=== PATIENT | male | born 1945 | race Caucasian/White ===

== ENCOUNTER 2018-01-01 01:21 | Inpatient (IN) | payer OTHER ==
[~2018-01-01] VITALS: Ht 182.9 cm; Wt 108.0 kg
[~2018-01-01 01:21] MED LIST: ANORO ELLIPTA1 EACH; ASPIRIN81 M4 PO; ATORVASTATIN CA40 M1 PO; FLOMAX0.4 M1 PO; METFORMIN HCL1000 M1 PO; RAMIPRIL5 M1 PO; TOPROL XL100 M1 PO; ZITHROMAX250 M2 PO
--- NOTE | 2018-01-01 09:27 | RADIOLOGY REPORT ---
Single lateral view of the lumbar spine CLINICAL INFORMATION: L3-L4 image 1. COMPARISON: Lumbar spine radiographs 11/16/[address] 04/21/2017. FINDINGS: Single lateral radiograph obtained in the OR demonstrates surgical instrumentation at the L3-L4 level where there is grade 1 degenerative anterolisthesis which is similar to the 04/21/2017 CT study. There is stable severe disc volume loss at L5-S1 and moderate disc volume loss at L4-L5. Advanced hypertrophic facet arthropathy at the L3-L4 and L4-L5 levels is again noted. Vertebral body heights are maintained. No definite acute fractures. IMPRESSION: Intraoperative lateral view of the lumbar spine demonstrating surgical instrumentation at the L3-L4 level where there is grade 1 degenerative anterolisthesis. Additional lumbar spondylosis appears similar to recent prior exams.
--- NOTE | 2018-01-01 12:51 | Operative Report ---
Operative/Inv Procedure Report Surgery Date: 01/01/18 Name of Procedure: L3-4 and L4-5 transforaminal lumbar interbody fusion L3-4 bilateral posterior osteotomies for spondylolisthesis correction L345 posterior lateral segment instrumentation using Synthes Expedia pedicle screws L3/4 4/5 placement of intervertebral biomechanical device 4 web cages use of autograft use of stealth navigation L4-5 bilateral synovial cyst resections Bone marrow aspirate from the right iliac crest L3-4 and 5 posterior lateral fusion Pre-Operative Diagnosis: Spondylolisthesis synovial cyst lumbar stenosis Post-Operative Diagnosis: Same Estimated Blood Loss: 1050 Surgeon/Mortgage Protection Sales: Solis Jose MD , Wale STUBBS,Jeannie Trent Anesthesia: general endotracheal tube Operative/Procedure Note Note: After the successful administration of general endotracheal anesthesia all lines to the margin was ascertained. The patient positioned prone on the Noman table pressure was padded. Patient was prepped and draped in usual sterile fashion. 10 cc of lidocaine with epinephrine was infiltrated in subcu tissues. #10 blade was used to incise the skin this was deepened with electrocautery to the fact lumbar fascia. The fascia was divided in a subperiosteal dissection was carried out exposing the spinous process, lamina and pars articularis of L3- 4 and 5. The level was confirmed by placing a Covel lateral to the pars of L3. X-rays used to confirm the level. I thought was confirmed with a denuded the L3-4 and 4 5 facets exposed the transverse processes L3-4 and 5. Trans-pars were decorticated with high-speed drill. We then removed the posterior elements of L3 and L4 by making bilateral cuts in the pars articularis at L3 removing the distal facet spinous process lamina of L3 as well as at L4. During the decompression at the L4-5 level where there is a synovial cyst and were resected for specimen. The flavum was then resected with a combination of upgoing curettes and pituitary rongeurs and Kerrison punches exposing the thecal sac to visualize on the left-hand side the exiting L3 the traversing L4 and the exiting L5 nerve roots in their entirety. Thecal sac was medialized and retracted with with a nerve retractor at L3-4, we entered the disc space and perform a total discectomy then trialed and placed a 4 web 11 x 26 mm spacer after the space was packed with morselized autograft. The steps repeated at the L4-5 level and the size we used was a 10 mm x 26 mm. After satisfied with both devices as well as the neural decompression we brought the O arm in and on the [employer] workstation plantar screws or points and trajectories. We use a navigated probe to plantar puddles the junction of the pars articularis, transverse process, facet complex at L3-4 and L5. This was deepened with an elevated Lexapro. Tapped with a 5.0 mm tap. There was good bony purchase circumferentially on the holes. We harvested iliac crest from the right iliac crest through separate incision this was used to soak the bone morselized from the posterior decompressions. We then placed a bony fusion over the transverse processes of L3-4 and L5 with endplate 6.5 mm x 50 mm screws at L3-4 and 5 all screws stimulated above threshold. We brought the O arm and confirmatory spends all harbors exposition. We then placed 2 precontoured rods a 55 mm left and 65 mm on the right will provide compression across the disc space and locked in place using a torque limiting courier delivery driver. There was a copious irrigated bacitracin irrigation bleeding with a minimum we put a #7 Hemovac drain through separate stab incision was then closed in layers using 0 Vicryl for the muscle and fascia and 3-0 Vicryl for the deep dermis. The skin was closed with orlando 20 cc of Exparel was infiltrated and subcu tissue and muscle during closing. A dry sterile dressing was applied. At the end the case all needle counts, sponges, and instruments were correct. The patient was taken to recovery room in stable condition.
--- NOTE | 2018-01-01 13:24 | Operative Report ---
Operative/Inv Procedure Report Surgery Date: 01/01/18 Name of Procedure: 1. Bilateral L3, L4 pars osteotomy, reduction of spondylolisthesis 2. Resection of all bilateral L 45 synovial cysts 3. L3 4, L4 5 transforaminal lumbar interbody fusion with 4webb interbody cages , autograft 4. L3, L4, L5 segmental posterior lateral arthrodesis with Synthes Expedium pedicle screws and rods, autograft, iliac crest bone marrow aspirate 5. O arm neuro navigation 6. Right iliac crest bone marrow aspirate Pre-Operative Diagnosis: L3 4, L4 5 spondylolisthesis, high-grade stenosis with progressive bilateral foot drops and lumbar claudication Post-Operative Diagnosis: Same Estimated Blood Loss: 1050cc Surgeon/Dentist Attendant: Wale STUBBS,Solis Lomax M.D. Anesthesia: general endotracheal tube Monitors: Neurophysiologic monitoring IV Fluids: 1.9 L crystalloid, 515 mL Cell Saver Implants: Synthes Expedia pedicle screws and rods, 4 web interbody cages Urine Output: 180 mL via Hutton Drains: Medium Hemovac Specimens: Bilateral L4 5 synovial cysts, L3 4, L4 5 disc material Complications: None Condition: Stable Operative Indication: Patient is a 72-year-old gentleman with bilateral lower extremity claudication and progressive bilateral foot drop to presents with high-grade L3 4, L4 5 spinal stenosis and degenerative spondylolisthesis who presents for surgical decompression and instrumented stabilization after failed conservative treatment. Operative/Procedure Note Note: Patient was taken the operating room. After appropriate patient identification and surgical timeout, neurophysiologic monitoring leads were placed and baseline recordings were obtained. The patient then underwent the smooth induction of general endotracheal anesthesia without incident. Monitoring was stable. A Hutton catheter was sterilely inserted. DVT prophylaxis was utilized throughout the case. With all tubes and lines secured, the patient was carefully turned to the prone position on the Noman table taking care to ensure that all pressure points were well-padded. We paid particular attention to keeping the neck neutral as the patient also harbors an underlying cervical spinal stenosis. Monitoring was stable after the turn. The lumbar region low back was widely prepped and draped usual sterile fashion using povidone iodine solution. A vertical midline skin incision was marked and infiltrated with local anesthetic. Skin incision was made with a 10 blade knife. Dissection was carried down through subcutaneous tissue with the Bovie to the lumbodorsal fascia. The fascia was incised in midline and a subperiosteal dissection of the lumbar paravertebral muscles was performed bilaterally the Bovie exposing underlying spinous processes lamina and the facet joints. We exposed from L3 to L5. A Guadalupe 4 was placed at the level of the pars and intraoperative localizing lateral lumbar x-rays obtained to confirm this to be at the pars of L3. We exposed further the transverse processes of L3 , L4, and L5 5 as well as the facet joints and total of L3 4 and L4 5 and self- retaining retractors were placed beneath the muscle. It was stripped the facet capsules at both levels on both sides. The transverse processes were decorticated with a high-speed drill and lateral gutters packed off. We then focused our attention to the decompression. Bilateral lumbar pars osteotomies of L3 and L4 were performed using a bone scalpel. The facet joints of L3 4 and L4 5 were gross totally resected on both sides using combination a Leksell rongeur the bone scalpel and Kerrison skeletonizing the pedicles of L3, L4, and L5 bilaterally. Synovial cysts were encountered and were carefully resected and sent off for specimen. Thickened ligamentum flavum was carefully elevated off the dural sac and resected with Kerrison rongeurs exposing the underlying thecal sac. Both the exiting and traversing roots of L3, L4, and L5 were completely decompressed bilaterally. We then focused our attention to the interbody arthrodesis. Working from the patient's more symptomatic left side, the dural sac was gently mobilized to the midline at L3 4 exposing underlying disc annulus. Venous epidural tissue was coagulated and divided. Annulotomy was performed an aggressive discectomy completed with disc space michele and rasps until all the cartilaginous endplate was removed. Disc herniation at L3 4 appeared To contribute to the neural impingement. Once the disc space was prepared, morcellated autograft from the decompression was packed into the anterior 34 interspace. An 11 x 26 for web titanium interbody cage was selected. This was packed with morcellated autograft and gently impacted into the L3 4 interspace under direct visualization and countersunk. With the interbody at L3 4 completed, we performed an analogous decompression of the disc and interbody arthrodesis of L4 5. Working from the left-sided L4 5, thecal sac was gently mobilized the midline. The underlying disc annulus of L4 5 was coagulated with a bipolar and incised in a rectangular fashion with an 11 blade knife. Discectomy was completed with disc space michele and rasps until all the cartilaginous endplate was removed. The 11 x 26 mm for web titanium cage was selected and packed with autograft. Autograft was packed into the anterior aspect of the L4 5 disc. The cage was then gently impacted into the disc space and countersunk while the neural elements were protected. Using a Jamshidi needle, we then obtained 20 mL of iliac crest bone marrow aspirate from the right posterior iliac crest which was added to the morcellized autograft from the decompression. We then attached of the O arm reference arc to the L5 spinous process. AP and lateral reference x-rays and then a spin of the O arm was performed and the data acquired and reformatted. After confirming the reformats, we then proceeded with placement of the pedicle screw and jerry instrumentation under O arm navigation. Entry points for pedicle screws were then selected at the junction of the pars transverse process and rostral facet. Beginning at L3 and using the O arm guidance, entry points were selected and photogrammetry airplane pilot holes drilled. Morcellated autograft with iliac crest bone marrow aspirate was packed over the decorticated transverse processes from L3 to L5 bilaterally. The pedicles were then traversed with a gearshift, sounded with a ball-tipped probe, tapped, and screws placed. Each screw was placed in an analogous fashion bilaterally from L3 to L5. 6.5 x 50 mm Synthes Expedium pedicle screws were placed without complication. Once all screws 6 screws were in position, second spin of the O arm was obtained and confirmed excellent positioning all all of the instrumentation, reduction of the L3 4 spondylolisthesis and excellent sabianist of intervertebral heights at both levels. The decompression also looked excellent. All 6 screws were stimulated with thresholds greater than 30 mA. We top loaded a 55 mm jerry on the left and a 60 mm jerry on the right and locking caps were placed. Gentle compression was placed across the interbody grafts at both levels and then the screws were finally tightened with an antitorque device. The wound was copiously irrigated with bacitracin sterile saline irrigation. Hemostasis is achieved using combination of FloSeal, the bipolar, and thrombin- soaked Gelfoam patties which were used a to cover the exposed dura. Idiom Hemovac drain was placed into the wound and secured to the skin with a 2-0 nylon suture and wound closure was begun. Deep muscle was reapproximated with interrupted 0 Vicryl suture. The lumbodorsal fascia was reapproximated interrupted 0 Vicryl suture. Superficial wound was copiously irrigated and closed in layers with interrupted 2-0 Vicryl suture in the subcutaneous tissue and orlando in the skin. Wounds clean and dried. Bacitracin and a sterile occlusive dressing was placed. A sterile Band- Aid was placed over the right hip stab incision. The patient was carefully returned to the supine position, awakened, extubated, and taken to PACU in stable condition. He was noted to be moving all 4 extremities at the completion of the case. All sponge, needle, and injuring counts were correct at the completion of the procedure times three. Discharge Disposition: PACU
--- NOTE | 2018-01-01 14:05 | RADIOLOGY REPORT ---
EXAMINATION: XR LUMBAR SPINE OR CLINICAL INFORMATION: 72-year-old male undergoing L3-L4 and L4-L5 transforaminal lumbar interbody fusion. COMPARISON: Intraoperative radiograph, 01/01/2018 TECHNIQUE: Intraoperative CT imaging of lumbar spine was performed in the colon the axial images are submitted into the electronic picture archive. DLP: 900.5 mGycm FINDINGS: Intraoperative CT imaging of the lumbar spine was performed. L3 spinous process is surgically absent and there is a L4 laminectomy defect. Midline operative wound with posterior paraspinal soft tissue gas. Transpedicular screws are in proper position at L3, L4 and L5. Interbody fusion cages well-positioned at L3-L4 and L4-L5. Posterolateral bone graft has been applied at L3-L5. IMPRESSION: Intraoperative CT imaging performed for lumbar spinal fusion. The transpedicular screws and fusion cages at L3-L4 and L4-L5 are in satisfactory position.
[2018-01-01 17:00] VITALS: BP 120/74
--- NOTE | 2018-01-01 18:02 | Patient Discharge Instructions ---
Discharge Instructions General Discharge Information You were seen/treated for: TLIF L3-4, L4-5 You had these procedures: degenerative disc disease 2 level TLIF with instrumented fusion Watch for these problems: fevers, chills, wound drainage increasing back pain and weakness Call Surgeon to remove: Simona Do not soak the wound: No Daily wet to dry dressings: No No bath, but you may shower: No Other wound care: keep wound CDI, do not get wet, cover for showers Diet Continue normal diet: Yes Activity Full Activity/No Limits: No Activity Self Limited: Yes Acute Coronary Syndrome Inclusion Criteria At DC or during hospital stay patient has or had the following: Discharge Core Measures Meds if any: Prescribed or Continued at Discharge Meds if any: NOT Prescribed or Continued at Discharge Congestive Heart Failure Inclusion Criteria At DC or during hospital stay patient has or had the following: Discharge Core Measures Meds if any: Prescribed or Continued at Discharge Meds if any: NOT Prescribed or Continued at Discharge Cerebrovascular accident Inclusion Criteria At DC or during hospital stay patient has or had the following: Discharge Core Measures Meds if any: Prescribed or Continued at Discharge Meds if any: NOT Prescribed or Continued at Discharge Venous thromboembolism Discharge Core Measures - Per Current guidelines, there needs to be overlap - treatment for the first 5 days of Warfarin therapy. - If discharged on Warfarin prior to 5 days of - overlap therapy, the patient will need to be - assessed for post discharge needs including - *Post discharge parental anticoagulation - *Warfarin and/or parental anticoagulation education - *Follow up date to check INR post discharge Meds if any: Prescribed or Continued at Discharge Note: Overlap Therapy is Warfarin and Anticoagulant Meds if any: NOT Prescribed or Continued at Discharge
--- NOTE | 2018-01-01 18:09 | PN- Neurosurgical ---
Subjective Subjective: 72-year-old male is status post TLIF L3-4,4-5 with instrumented fusion. He is doing well postop without any complaints his pain is controlled and he is currently hungry. His motors have returned to baseline and sensory is intact. Objective Vital Signs and I&Os On physical examination patient is alert and oriented is present all questions answered Vital signs are stable and he is afebrile heart regular rate and rhythm without murmurs rubs gallops Chest is clear to auscultation symmetric without rales rhonchi or wheeze Abdomen is obese without distention nontender to palpation no pressure ulcerations or sores noted from Noman table Bilateral lower extremities he has 5 out of 5 motor and sensory is intact. Calves are soft bilaterally feet are warm with good perfusion Examination of the lumbar spine shows dressings are mildly saturated with serosanguineous drainage. Drain site is without leakage and there is approximately 150 cc of blood within the Hemovac. Current Medications: Current Medications Sig/Ar Start time Last Medication Dose Route Stop Time Status Admin Acetaminophen 650 MG Q4P PRN 01/01 1530 AC PO Atorvastatin Calcium 20 MG 1700 01/02 1700 UNVr PO Bisacodyl 10 MG DAILY NEEDED PRN 01/01 1530 AC CA Clindamycin 900 MG Q8 01/01 2200 CAN IV 01/04 1401 Clindamycin 900 MG Q8 01/01 1800 AC Dextrose/Water 50 ML IV 01/04 0644 Clindamycin 900 MG ONCE 01/01 0000 NR Dextrose/Water 50 ML IV 01/01 2359 Dexamethasone 2 MG Q6H 01/01 1515 AC PO 01/03 0916 Diazepam 5 MG Q8P PRN 01/01 1530 AC PO Docusate Sodium 100 MG TID 01/01 2100 AC PO Famotidine 20 MG BID 01/01 2100 AC PO Fentanyl Citrate 0 .STK-MED ONE 01/01 0701 DC .ROUTE Heparin Sodium 5,000 UNIT Q8 01/01 2200 AC (Porcine) SC Hydromorphone HCl 50 MG Q24H PRN 01/01 1445 AC Sodium Chloride 45 ML IV Hydromorphone HCl 0 .STK-MED ONE 01/01 0701 DC .ROUTE Insulin Human Regular 0 TIDAC/HS 01/01 2100 UNVr SC Ketamine HCl 0 .STK-MED ONE 01/01 0702 DC .ROUTE Ketorolac 15 MG Q6P PRN 01/01 1515 AC Tromethamine IV Lisinopril 20 MG DAILY 01/02 900 UNVr PO Metoprolol Succinate 100 MG DAILY 01/02 900 UNVr PO Ondansetron HCl 4 MG Q6P PRN 01/01 1530 AC IV Oxycodone/ 2 TAB Q4P PRN 01/01 1515 AC Acetaminophen PO Senna 374 MG AT BEDTIME PRN 01/01 1530 AC PO Tamsulosin HCl 0.4 MG DAILY 01/02 900 CANr PO Tamsulosin HCl 0.4 MG DAILY 01/02 900 UNVr PO Tiotropium [place] 1 PUF DAILY 01/02 09 UNVr INH Trimethobenzamide HCl 200 MG Q6P PRN 01/01 1530 AC IM Assessment/Plan Assessment/Plan Plan 72 y/o male has postoperative 2 level TLIF with instrumented fusion. He has a past medical history significant for hyperlipidemia, hypertension and diabetic [id number]. Currently is on Flomax for BPH and has started a new inhaler for his COPD which is stable Continue to monitor blood loss through Hemovac. Labs are pending in the a.m. Hutton with good urine output. He is on WET MILLING WHEEL OPERATOR for postop pain control. DVT prophylaxis is Alps Advance diet as tolerated Core Measures Venous Thromboembolism VTE Risk Factors Surgery No Mechanical VTE Prophylaxis d/t N/A MechProphylax Ordered No VTE Pharm Prophylaxis d/t NA PharmProphylax ordered
[2018-01-01 19:15] VITALS: BP 130/75
[2018-01-01 21:00] VITALS: BP 106/60
[2018-01-01 23:00] VITALS: BP 102/62
[2018-01-02 02:25] VITALS: BP 110/66
[2018-01-02 03:56] VITALS: BP 104/62
[2018-01-02 06:27] VITALS: BP 108/68
--- NOTE | 2018-01-02 07:18 | PN- Neurosurgical ---
Subjective Subjective: Pt doing well. No complaints this am. Feels LE symptoms are improved. Objective Vital Signs and I&Os Vital Signs Date Time Temp Pulse Resp B/P B/P Pulse O2 O2 Flow FiO2 Mean Ox Delivery Rate 01/02 06 98.0 68 20 108/68 97 01/02 0356 98.6 70 20 104/62 92 01/02 0225 98.1 71 20 110/66 96 01/01 2300 98.7 68 18 102/62 92 01/01 2100 98.5 73 18 106/60 92 01/01 1915 98.7 70 18 130/75 96 Room Air 01/01 1700 97.8 70 18 120/74 90 Room Air Intake & Output 01/02 0800 01/02 0000 01/01 1600 01/01 0801/01 0000 12/31 1600 Intake Total 400 Output Total 175 Balance 225 Intake, IV 300 Intake, Oral 100 Output, 175 Drainage Patient 107.955 kg Weight Weight Reported by Patient Measurement Method Physical Exam: AF, VSS awake and alert Neuro exam is improved with better strenth bilat dorsiflexion incision is flat with min serosanguinous dc HV 175cc last 8 hrs using IS to over 2L voiding on own in urinal Current Medications: Current Medications Sig/Ar Start time Last Medication Dose Route Stop Time Status Admin Acetaminophen 650 MG Q4P PRN 01/01 1530 AC PO Atorvastatin Calcium 20 MG 1700 01/02 1700 AC PO Bisacodyl 10 MG DAILY NEEDED PRN 01/01 1530 AC AR Clindamycin 900 MG Q8H 01/02 0400 DC Dextrose/Water 50 ML IV 01/04 1244 Clindamycin 900 MG Q8H 01/02 0200 AC 01/02 Dextrose/Water 50 ML IV 01/04 1044 0247 Clindamycin 900 MG Q8 01/01 2200 CAN IV 01/04 1401 Clindamycin 900 MG Q8 01/01 1800 DC 01/01 Dextrose/Water 50 ML IV 01/04 0644 1958 Clindamycin 900 MG ONCE 01/01 0000 DC Dextrose/Water 50 ML IV 01/01 2359 Dexamethasone 2 MG Q6H 01/01 1515 AC 01/02 PO 01/03 0916 0247 Dextrose/Sodium 1,000 ML Q13H 01/01 2000 AC 01/01 Chloride IV 1959 Diazepam 5 MG Q8P PRN 01/01 1530 AC PO Docusate Sodium 100 MG TID 01/01 2100 AC 01/01 PO 2007 Famotidine 20 MG BID 01/01 2100 AC 01/01 PO 2007 Heparin Sodium 5,000 UNIT Q8 01/01 2200 AC 01/02 (Porcine) SC 0626 Hydromorphone HCl 50 MG Q24H PRN 01/01 1445 AC Sodium Chloride 45 ML IV Insulin Human Regular 0 TIDAC/HS 01/01 2100 AC 01/01 SC 2142 Ketorolac 15 MG Q6P PRN 01/01 1515 DC Tromethamine IV Lisinopril 20 MG DAILY 01/02 0900 AC PO Metoprolol Succinate 100 MG DAILY 01/02 09 AC PO Ondansetron HCl 4 MG Q6P PRN 01/01 1530 AC IV Oxycodone/ 2 TAB Q4P PRN 01/01 1515 DC Acetaminophen PO Senna 374 MG AT BEDTIME PRN 01/01 1530 AC PO Tamsulosin HCl 0.4 MG DAILY 01/02 0900 CAN PO Tamsulosin HCl 0.4 MG DAILY 01/02 0900 AC PO Tiotropium Ox[place] 1 PUF DAILY 01/02 0900 AC INH Trimethobenzamide HCl 200 MG Q6P PRN 01/01 1530 AC IM Assessment/Plan Assessment/Plan Pt POD1 s/p L3/4, L4/5 TLIF and doing well. Neurologically intact. Plan: -OOB today in brace -PT eval -cont HV until less than 50cc per shift, clindamycin until out -reg diet -dc WEB MARKETING COORDINATOR -toradol prn, oral dilaudid prn -DVT prophylaxis Core Measures Venous Thromboembolism VTE Risk Factors Surgery No Mechanical VTE Prophylaxis d/t N/A MechProphylax Ordered No VTE Pharm Prophylaxis d/t NA PharmProphylax ordered Attending MD Review Statement Attending Statement Attending MD Statement: examined this patient, discuss w/resident/PA/BULK TRUCK DRIVER, discussed w/nursing
[2018-01-02 08:04] VITALS: BP 160/60
[2018-01-02 10:48] LABS: ABSOLUTE BASOPHIL COUNT 0 /CUMM (0.0-0.2); ABSOLUTE EOSINOPHIL COUNT 0 /CUMM (0.0-0.7); ABSOLUTE GRANULOCYTE CT 9.5 /CUMM (1.4-6.5); ABSOLUTE LYMPH COUNT 1.1 /CUMM (1.2-3.4); ABSOLUTE MONOCYTE COUNT 0.8 /CUMM (0.10-0.60); BASOPHIL % 0 % (0.0-2.0); EOSINOPHIL % 0 % (0-5); HEMATOCRIT 35.9 % (42-52); MEAN CORPUSCULAR HGB CONC 33.5 G/DL (33.0-37.0); MEAN CORPUSCULAR VOLUME 86.6 FL (80.0-94.0); PLATELET COUNT 133 /CUMM (130-400); RBC DISTRIBUTION WIDTH 13.6 % (11.5-14.5); RED BLOOD CELL CT 4.15 /CUMM (4.70-6.10); WHITE BLOOD CELL COUNT 11.4 /CUMM (4.8-10.8)
[2018-01-02 11:08] LABS: GRANULOCYTE % 83.7 % (42.2-75.2)
[2018-01-02 14:17] VITALS: BP 140/50
--- NOTE | 2018-01-02 14:28 | Surg Short-stay <48hrs Dis Sum ---
Visit Information Visit Dates Admission Date: 01/01/18 Discharge Date: 01/04/2018 Surgical Short Stay DC Summary Admission Diagnosis: L3-5 spondylolisthesis, high-grade stenosis with progressive bilateral foot drops and lumbar claudication Final Diagnosis: Same Procedure(s): Bilateral L3, L4 pars osteotomy, reduction of spondylolisthesis Resection of all bilateral L4-5 synovial cyst L3-5 transforaminal lumbar interbody fusion L3-5 segmental posterior lateral arthrodesis with pedicle screws, rods, autograft, iliac crest bone marrow aspirate Right iliac crest bone marrow aspirate Summary/Significant Findings: Patient tolerated the procedure well. Postoperatively a drain was left in until the output was less than 50 cc per shift. He was continued on clindamycin while the drain was left in place. He was tolerating a regular diet, voiding spontaneously, pain was well managed, and he ambulated with physical therapy using a back brace. Patient was cleared for discharge to home with services and given instructions to follow-up with Dr. Echevarria. Dressing was changed prior to discharge. Condition at Discharge: Good Discharge Disposition: home health services Discharge instructions provided to patient/family: Yes Post discharge follow-up plan: Patient is to follow-up with Dr. Priest in 10 days. She was given instructions to call sooner with any questions or concerns
[2018-01-02 22:03] VITALS: BP 110/60
[2018-01-03 02:00] VITALS: BP 124/60
[2018-01-03 07:16] VITALS: BP 112/60
--- NOTE | 2018-01-03 09:58 | PN- Neurosurgical ---
Subjective Subjective: No acute overnight events reported. Pain controlled. Pt denies chest pain, shortness of breath and difficulty breathing. Patient denies nausea and vomitting. States that with insulin administration he notes dizziness, is requesting to not receive insulin at a high dose. Objective Vital Signs and I&Os Vital Signs Date Time Temp Pulse Resp B/P B/P Pulse O2 O2 Flow FiO2 Mean Ox Delivery Rate 01/03 0716 98.7 65 20 112/60 91 Room Air 01/03 0200 99.3 68 20 124/60 95 Room Air 01/02 2203 98.6 67 18 110/60 94 Room Air 01/02 1644 Room Air Room Air 01/02 1417 98.3 72 24 140/50 90 Room Air Intake & Output 01/03 1600 01/03 0800 01/03 0000 01/02 1600 01/02 0800 01/02 0000 Intake Total 300 480 700 400 Output Total 600 600 450 850 175 Balance -300 -600 30 -150 225 Intake, IV 200 600 300 Intake, Oral 100 480 100 100 Number 0 0 Bowel Movements Output, 50 100 175 Drainage Output, Urine 550 600 450 750 Patient 238 lb Weight Weight Reported by Patient Measurement Method Physical Exam: General: Alert and oriented x3, no acute distress Cardiac: RRR, s1s2 Pulm: C T A bialterally, non-labored respiratory effort Abd: Non-tender, non-distended Extremities: Moves all extremities, neurovascular status grossly intact. Bialteral calves soft and non-tender Surgical site: Back, dressing blood tinged. Hemovac holding suction, output 50 cc overnight. Assessment/Plan Assessment/Plan This is a 72 year old male, POD 2, s/p L3-5 TLIF. PMH signficant for htn, hld, dm, bph, copd. Post op creatinine 1.3, .metformin initially held, insulin ss given, pt not tolerating. -Creatinine 1.1 today, resume home metformin, dc insulin -Drain output 50 cc overnight, will continue today, recheck in 8 hours -PT evaluation today -Pain controlled, requiring minimal pain medication -Continue diet as tolerated -Continue oob, wbat, brace -Continue clindamycin q8h while drain in place -Continue hep sub q for dvt ppx Will discuss poc with Dr. Echevarria Core Measures Venous Thromboembolism VTE Risk Factors Surgery No Mechanical VTE Prophylaxis d/t N/A MechProphylax Ordered No VTE Pharm Prophylaxis d/t NA PharmProphylax ordered
[2018-01-03 12:00] VITALS: BP 110/70
[2018-01-03 15:50] VITALS: BP 128/75
[2018-01-03 22:39] VITALS: BP 118/60
[2018-01-04 06:56] VITALS: BP 122/66
[2018-01-04 08:45] VITALS: BP 122/66
[2018-01-04] MEDS ORDERED: OXYCODONE HCL5 M1 PO (09:43)
--- NOTE | 2018-01-04 09:51 | PN- Neurosurgical ---
Subjective Subjective: Pt seen by Dr Wale MARTÍNEZ in chair currently without complaints Discharge instructions reviewed He is eager to go home and all questions were answered Objective Vital Signs and I&Os Vital Signs Date Time Temp Pulse Resp B/P B/P Pulse O2 O2 Flow FiO2 Mean Ox Delivery Rate 01/04 0845 62 122/66 01/04 0845 62 122/66 01/04 0845 62 122/66 01/04 0656 98.0 62 20 122/66 95 Room Air 01/03 2239 97.9 85 18 118/60 93 Room Air 01/03 1550 98.4 78 18 128/75 97 Room Air 01/03 1216 98.8 01/03 1213 98.8 88 20 110/70 01/03 1212 98.8 88 20 11070 01/03 1200 98.8 88 20 110/70 97 Room Air Room Air Intake & Output 01/04 1600 01/04 0800 01/04 0000 01/03 1600 01/03 0800 01/03 0000 Intake Total 100 600 675 300 Output Total 550 450 325 600 600 Balance -450 150 350 -300 -600 Intake, IV 75 200 Intake, Oral 100 600 600 100 Number 0 Bowel Movements Output, 25 50 Drainage Output, Urine 550 450 300 550 600 Physical Exam: afebrile VSS Examined by Dr Echevarria Dressing changed - wound looks good without any erythema or drainage, [place] intact. Assessment/Plan Assessment/Plan 72yo male pod 3 s/p L 3-5 TLIF dc home with nursing services follow up with Dr Echevarria All questions answered oxycodone prn at dc Core Measures Venous Thromboembolism VTE Risk Factors Surgery No Mechanical VTE Prophylaxis d/t N/A MechProphylax Ordered No VTE Pharm Prophylaxis d/t NA PharmProphylax ordered
== END 2018-01-04 11:12 | disposition home health service (06) | DRG 455 ==
LOC: SDA 01:21 → ENRESERV 13:34 → ENTRNSPT 15:58 → EDTRNSPT 16:24 → EDTRNSPTSTS 16:24 → CMPTRNSPT 16:32 → 2NA 16:46 → ENPENDDIS 01-04 10:17 → ENTRNSPT 01-04 10:50 → EDTRNSPT 01-04 11:01 → EDTRNSPTSTS 01-04 11:01 → 2NA 01-04 11:12 → CMPTRNSPT 01-04 11:12
PROVIDERS: Physician Assistant
PROC: 0SG10AJ Fusion of 2 or more Lumbar Vertebral Joints with Interbody Fusion Device, Posterior Approach, Anterior Column, Open Approach (ICD-10-PCS; principal; 2018-01-01)
PROC: 0SG1071 Fusion of 2 or more Lumbar Vertebral Joints with Autologous Tissue Substitute, Posterior Approach, Posterior Column, Open Approach (ICD-10-PCS; principal; 2018-01-01)
PROC: 0SB00ZZ Excision of Lumbar Vertebral Joint, Open Approach (ICD-10-PCS; principal; 2018-01-01)
PROC: 0ST20ZZ Resection of Lumbar Vertebral Disc, Open Approach (ICD-10-PCS; 2018-01-01)
PROC: 07DR3ZZ Extraction of Iliac Bone Marrow, Percutaneous Approach (ICD-10-PCS; 2018-01-01)
PROC: 4A11X4G Monitoring of Peripheral Nervous Electrical Activity, Intraoperative, External Approach (ICD-10-PCS; 2018-01-01)
DX: M48.062 Spinal stenosis, lumbar region with neurogenic claudication (principal); M43.16 Spondylolisthesis, lumbar region; J44.9 Chronic obstructive pulmonary disease, unspecified; E11.9 Type 2 diabetes mellitus without complications; M21.372 Foot drop, left foot; M21.371 Foot drop, right foot; M71.38 Other bursal cyst, other site; G47.33 Obstructive sleep apnea (adult) (pediatric); E78.5 Hyperlipidemia, unspecified; I10 Essential (primary) hypertension; N40.0 Benign prostatic hyperplasia without lower urinary tract symptoms; R91.1 Solitary pulmonary nodule; Z79.84 Long term (current) use of oral hypoglycemic drugs; Z87.891 Personal history of nicotine dependence; Z88.0 Allergy status to penicillin; Z88.1 Allergy status to other antibiotic agents
CPT/HCPCS: 2NAP; 36415; 36592; 72020; 76000; 82436; 87086; 97110-GO; 97116-GO; 97161-GP; 97530-GO; C1713; C9290; J1170; J1644; J1815; J2405; J3250; J7040; J7042; J7508